=== PATIENT | male | born 1945 | race Caucasian/White ===

== ENCOUNTER 2019-11-21 10:21 | Emergency (ER) | payer MEDICARE ==
[~2019-11-21] VITALS: Ht 170.2 cm; Wt 86.4 kg
[~2019-11-21 10:21] MED LIST: AMLO5TAB PO; CARV-49 PO; FINA5TAB11 PO; FLO0.4C PO; SIMV-45 PO
[2019-11-21 11:07] LABS: CLARITY,URINE CLOUDY (Clear); COLOR,URINE AMBER (Yellow); GLUCOSE, URINE NEGATIVE (Neg); KETONES,URINE NEGATIVE (Neg); LEUKOCYTE ESTERASE ,URINE TRACE (Neg); OCCULT BLOOD,URINE LARGE (Neg); PH,URINE 5.5 (4.8-8.0); PROTEIN,URINE 100 mg/dl (Neg)
[2019-11-21 11:11] LABS: UA COLLECTION TYPE CLN CATCH MIDSTREAM
[2019-11-21 11:12] LABS: NITRITES, URINE NEGATIVE (Neg)
[2019-11-21 11:13] LABS: BACTERIA,URINE NONE SEEN /HPF (Neg); MUCUS STRANDS NONE SEEN /LPF (Neg); RBC,URINE TNTC /HPF (0-2); SQUAMOUS EPITHELIAL CELL,UR FEW /LPF (FEW); WBC,URINE 0-4 /HPF (0-4)
[2019-11-21] MEDS ORDERED: potassium chloride 10mEq ER tablet PO ONE (11:25)
[2019-11-21] MEDS ORDERED: furosemide 20MG tablet PO ONE (11:25)
[2019-11-21] MEDS ORDERED: potassium chloride 10mEq ER tablet PO SCH (11:25)
[2019-11-21 11:39] LABS: BASOPHILS # (AUTO) 0.2 X10'3 (0-0.2); EOSINOPHILS # (AUTO) 0.1 X10'3 (0-0.9); EOSINOPHILS % (AUTO) 0.7 % (0-6); LYMPHOCYTES # (AUTO) 0.9 X10'3 (1.1-4.8); LYMPHOCYTES % (AUTO) 7.6 % (21-51); MEAN CORPUSCULAR HEMOGLOBIN 28.8 PG (27.0-31.0); MEAN CORPUSCULAR HGB CONC 33.2 g/dL (33.0-36.5); MEAN CORPUSCULAR VOLUME 86.7 FL (78-98); MONOCYTES # (AUTO) 0.7 X10'3 (0-0.9); MONOCYTES % (AUTO) 6.2 % (2-12); NEUTROPHILS # (AUTO) 9.8 X10'3 (1.8-7.7); NEUTROPHILS % (AUTO) 83.5 % (42-75); PLATELET COUNT 190 X10'3 (140-440); RED CELL DISTRIBUTION WIDTH 18.3 % (11.5-14.5); WHITE BLOOD COUNT 11.7 X10'3 (4.5-11.0)
[2019-11-21 11:51] LABS: ALANINE AMINOTRANSFERASE 16 U/L (12-78); ALBUMIN 3.7 G/DL (3.4-5.0); ALBUMIN/GLOBULIN RATIO 0.9 (1.1-1.5); ALKALINE PHOSPHATASE 88 IU/L (46-116); ANION GAP 8 (8-16); ASPARTATE AMINO TRANSFERASE 15 U/L (10-37); BILIRUBIN,TOTAL 2.1 MG/DL (0.1-1.0); BLOOD UREA NITROGEN 9 MG/DL (7-18); BUN/CREATININE RATIO 8.7 (5.4-32.0); CHLORIDE 102 MMOL/L (99-107); CREATININE 1.03 MG/DL (0.60-1.10); GLUCOSE 175 MG/DL (70-104); POTASSIUM 3.5 MMOL/L (3.5-5.1); SODIUM 140 MMOL/L (135-145); TOTAL CARBON DIOXIDE 29.9 MMOL/L (24-32); TOTAL PROTEIN 7.8 G/DL (6.4-8.2); eGFR 70 ML/MIN
[2019-11-21 14:03] VITALS: BP 150/92
== END 2019-11-21 14:05 | disposition home or self-care (01) ==
LOC: ER 10:21
DX: R33.9 Retention of urine, unspecified (principal); N20.0 Calculus of kidney; M10.9 Gout, unspecified; R60.0 Localized edema; I25.10 Atherosclerotic heart disease of native coronary artery without angina pectoris; E78.00 Pure hypercholesterolemia, unspecified; I10 Essential (primary) hypertension; Z95.1 Presence of aortocoronary bypass graft; Z79.899 Other long term (current) drug therapy
CPT/HCPCS: 51702; 74176; 80053; 81001; 84550; 85025; 87088; 99284

== ENCOUNTER 2019-11-22 12:51 | Emergency (ER) | payer MEDICARE ==
[~2019-11-22] VITALS: Ht 170.2 cm; Wt 97.0 kg
[2019-11-22] MEDS ORDERED: LIDOcaine 2% 10ml TOPICAL JELLY (Urojet) MM ONE (13:50)
[2019-11-22 15:23] VITALS: BP 134/68
--- NOTE | 2019-11-22 15:29 | NUR ---
Pt given instructions for using the valdovinos drainage bag for night time and leg bag for drainage during the daytime. Pt verbalized understanding of cath care at home.
== END 2019-11-22 15:30 | disposition home or self-care (01) ==
LOC: ER 12:51
DX: R33.9 Retention of urine, unspecified (principal); I25.10 Atherosclerotic heart disease of native coronary artery without angina pectoris; E78.00 Pure hypercholesterolemia, unspecified; I10 Essential (primary) hypertension; M10.9 Gout, unspecified; Z87.442 Personal history of urinary calculi; Z95.1 Presence of aortocoronary bypass graft; Z79.899 Other long term (current) drug therapy
CPT/HCPCS: 51702; 99284

== ENCOUNTER 2019-11-27 23:59 | Emergency (ER) | payer MEDICARE ==
[~2019-11-27] VITALS: Ht 170.2 cm; Wt 84.1 kg
[2019-11-28] MEDS ORDERED: LIDOcaine 2% 10ml TOPICAL JELLY (Urojet) MM STA (00:20)
[2019-11-28 00:47] LABS: CLARITY,URINE TURBID (Clear); UA COLLECTION TYPE FOLEY CATH
[2019-11-28 00:48] LABS: COLOR,URINE RED (Yellow)
[2019-11-28 01:07] LABS: RBC,URINE TNTC /HPF (0-2)
[2019-11-28 01:08] LABS: BACTERIA,URINE 1+ /HPF (Neg); CAL OXALATE CRYSTALS 1+ /HPF (NEGATIVE); SQUAMOUS EPITHELIAL CELL,UR FEW /LPF (FEW)
[2019-11-28] MEDS ORDERED: CIPR-260 PO (02:53)
[2019-11-28] MEDS ORDERED: ciprofloxacin 250mg tablet PO ONE (02:55)
--- NOTE | 2019-11-28 03:08 | NUR ---
PT REQUESTED LEG BAG TO GO HOME IN. HE HAD A CATHETER BEFORE JUST LAST WEEK AND KNOWS HOW TO SWITCH THE BAGS AROUND. HE HAD SOME QUESTIONS AND THEY WERE ALL ANSWERED.
[2019-11-28 03:09] VITALS: BP 135/68
== END 2019-11-28 03:11 | disposition home or self-care (01) ==
LOC: ER 11-28
DX: N13.9 Obstructive and reflux uropathy, unspecified (principal); N40.0 Benign prostatic hyperplasia without lower urinary tract symptoms; R33.9 Retention of urine, unspecified; I25.10 Atherosclerotic heart disease of native coronary artery without angina pectoris; E78.00 Pure hypercholesterolemia, unspecified; I10 Essential (primary) hypertension; M10.9 Gout, unspecified; Z87.442 Personal history of urinary calculi; Z95.1 Presence of aortocoronary bypass graft; Z79.899 Other long term (current) drug therapy
CPT/HCPCS: 51702; 81001; 87077; 87088; 87186; 99284